=== PATIENT | female | born 1950 | race Caucasian/White ===

== ENCOUNTER 2016-11-22 20:04 | Emergency (ER) | payer MEDICARE ==
[~2016-11-22 20:04] MED LIST: Sodium Chloride 0.9% 1,000 ML BAG ONE
[2016-11-22 20:27] LABS: #Basophils 0.1 thou/uL (0.0-0.2); #Eosinphils 0.3 thou/uL (0.0-0.7); #Lymphocytes 2.6 thou/uL (1.20-3.40); #Monocytes 0.6 thou/uL (0.11-0.59); #Neutrophils 3.9 thou/uL (1.40-6.50); %Eosinophils 4.3 % (0.0-10.0); %Lymphocytes 34.9 % (21.0-51.0); %Monocytes 7.8 % (0.0-10.0); %Neutrophils 52.1 % (42.0-75.0); Hemoglobin 13.5 g/dL (12.0-16.0); Mean Corpuscular HGB CONC 33.4 g/dL (32.0-36.0); Mean Corpuscular Hemoglobin 31.1 pg (27.0-31.0); Mean Corpuscular Volume 93.2 fl (81.0-99.0); Mean Platelet Volume 6.5 fL (7.4-10.4); Platelet Count 262 thou/uL (130-400); Red Blood Cell (RBC) Count 4.35 mill/uL (4.20-5.40); White Blood Cell (WBC) Count 7.5 thou/uL (4.8-10.8)
[2016-11-22 20:31] LABS: PTT 23.7 SEC (22.9-36.1); Prothrombin Time 13.6 SEC (12.0-14.7)
[2016-11-22 20:32] LABS: D-Dimer Test Less than 0.27 *mcg/mL (0.27-0.43)
--- NOTE | 2016-11-22 20:40 | CT ---
CT BRAIN NONCONTRAST: 11/22/16 HISTORY: 66-year-old female with headache and acute right sided weakness. FINDINGS: There is no midline shift or any other mass effect. There is no evidence of acute intracranial hemo rrhage, large cortical infarct, obstructive hydrocephalus, or extraaxial fluid collection. The calv arium is intact. There is a small, several millimeter size focal calcification at the posterior supe rolateral aspect of the left globe. There has been no interval change overall since 07/10/15. IMPRESSION: 1. No acute intracranial findings. 2. Nonspecific calcification of the left globe. jn [] POS: [facility]
[2016-11-22 20:45] LABS: ALT (SGPT) 30 U/L (0-55); AST (SGOT) 23 U/L (5-34); Albumin 4.4 g/dL (3.4-4.8); Alkaline Phosphatase 58 U/L (40-150); Anion Gap 18 mmol/L (10-20); BUN (Urea Nitrogen) 21 mg/dL (9.8-20.1); Bilirubin, Total 0.3 mg/dL (0.2-1.2); Calc. Creatinine Clearance 0 mL/min (70-130); Calcium 10.6 mg/dL (7.8-10.44); Carbon Dioxide 26 mmol/L (23-31); Chloride 98 mmol/L (98-107); Estimated GFR-MDRD 48; Globulin 2.7 g/dL (2.4-3.5); Glucose 346 mg/dL (80-115); Potassium 4.1 mmol/L (3.5-5.1); Protein, Total 7.1 g/dL (5.8-8.1); Sodium 138 mmol/L (136-145)
[2016-11-22 20:47] LABS: CKMB 1.4 ng/mL (0-6.6); Troponin I Less than 0.010 ng/mL (< 0.028)
[2016-11-22] MEDS ORDERED: Acetaminophen 325 MG TAB ONE (21:36)
[2016-11-22 21:40] LABS: Bilirubin Negative (Negative); Blood, Urine Negative (Negative); Clarity Clear (Clear); Glucose, Urine (Dipstick) 500 mg/dL (Negative); Leukocyte Negative (Negative); Nitrite Negative (Negative); Protein, Urine (Dipstick) Negative (Neg-Trace); Specific Gravity, Urine 1.015 (1.005-1.030); Urobilinogen 0.2 mg/dL (0.2-1.0)
== END 2016-11-22 21:37 | disposition short-term general hospital (02) ==
LOC: MADERS 20:04
DX: R20.2 Paresthesia of skin (principal); R42 Dizziness and giddiness; E11.65 Type 2 diabetes mellitus with hyperglycemia; I10 Essential (primary) hypertension; K21.9 Gastro-esophageal reflux disease without esophagitis; E78.5 Hyperlipidemia, unspecified; F32.9 Major depressive disorder, single episode, unspecified; Z79.82 Long term (current) use of aspirin; Z79.84 Long term (current) use of oral hypoglycemic drugs; Z79.899 Other long term (current) drug therapy
CPT/HCPCS: 36416; 51701; 70450; 80053; 81003; 82553; 84484; 85025; 85379; 85610; 85652; 85730; 93005; 96360; A4353; J7050

== ENCOUNTER 2017-07-07 12:11 | Emergency (ER) | payer MEDICARE ==
[2017-07-07] MEDS ORDERED: Dexamethasone 4 MG TAB ONE (13:35)
== END 2017-07-07 13:45 | disposition home or self-care (01) ==
LOC: MADERS 12:11
DX: S93.402A Sprain of unspecified ligament of left ankle, initial encounter (principal); E11.9 Type 2 diabetes mellitus without complications; E78.5 Hyperlipidemia, unspecified; I10 Essential (primary) hypertension; K21.9 Gastro-esophageal reflux disease without esophagitis; F32.9 Major depressive disorder, single episode, unspecified; Z79.84 Long term (current) use of oral hypoglycemic drugs; Z86.73 Personal history of transient ischemic attack (TIA), and cerebral infarction without residual deficits; Z79.899 Other long term (current) drug therapy; X50.9XXA Other and unspecified overexertion or strenuous movements or postures, initial encounter
CPT/HCPCS: 99283; J8540

== ENCOUNTER 2017-07-25 17:53 | Emergency (ER) | payer MEDICARE ==
[2017-07-25] MEDS ORDERED: HYDROcodone/Acetaminophen 5/325 mg Tablet ONE (19:36)
[2017-07-25] MEDS ORDERED: Oseltamivir 75 MG CAP ONE (19:37)
--- NOTE | 2017-07-25 21:13 | RAD ---
TWO VIEWS CHEST 07/25/17 PROVIDED CLINICAL HISTORY: Cough. FINDINGS: Comparison is made with the study dated 07/11/15. The cardiac and mediastinal silhouette is within normal limits. Atherosclerosis involves the aortic a rch. No focal consolidation, pleural fluid, or pneumothorax apparent. Degenerative changes are seen i nvolving the thoracic spine. IMPRESSION: No evidence for an acute cardiopulmonary process. POS: [facility]
== END 2017-07-25 19:30 | disposition home or self-care (01) ==
LOC: MADERS 17:53
DX: J11.1 Influenza due to unidentified influenza virus with other respiratory manifestations (principal); E11.9 Type 2 diabetes mellitus without complications; E78.5 Hyperlipidemia, unspecified; I10 Essential (primary) hypertension; K21.9 Gastro-esophageal reflux disease without esophagitis; F32.9 Major depressive disorder, single episode, unspecified; Z86.73 Personal history of transient ischemic attack (TIA), and cerebral infarction without residual deficits; Z79.84 Long term (current) use of oral hypoglycemic drugs; Z79.899 Other long term (current) drug therapy; Z79.82 Long term (current) use of aspirin
CPT/HCPCS: 71020

== ENCOUNTER 2021-08-29 19:39 | Emergency (ER) | payer MEDICARE ==
[2021-08-29 20:25] LABS: #Basophils 0.1 thou/uL (0.0-0.2); #Eosinphils 0.2 thou/uL (0.0-0.7); #Monocytes 0.8 thou/uL (0.11-0.59); %Basophils 0.9 % (0.0-1.0); %Eosinophils 2.7 % (0.0-10.0); %Lymphocytes 33.3 % (21.0-51.0); %Monocytes 8.6 % (0.0-10.0); %Neutrophils 54.6 % (42.0-75.0); Mean Corpuscular HGB CONC 32.1 g/dL (32.0-36.0); Mean Corpuscular Hemoglobin 29.8 pg (27.0-31.0); Mean Corpuscular Volume 92.7 fL (78.0-98.0); Mean Platelet Volume 6.1 fL (7.4-10.4); Platelet Count 318 thou/uL (130-400); RBC Distribution Width 11.8 % (11.5-14.5); Red Blood Cell (RBC) Count 4.02 mill/uL (4.20-5.40); White Blood Cell (WBC) Count 9.1 thou/uL (4.8-10.8)
[2021-08-29 20:45] LABS: ALT (SGPT) 25 U/L (8-55); AST (SGOT) 24 U/L (5-34); Albumin 4.1 g/dL (3.4-4.8); Alkaline Phosphatase 66 U/L (40-110); Anion Gap 18 mmol/L (10-20); BUN (Urea Nitrogen) 16 mg/dL (9.8-20.1); Bilirubin, Total 0.3 mg/dL (0.2-1.2); CK (CPK) 316 U/L (29-168); Calc. Creatinine Clearance 0 mL/min (70-130); Calcium 9.4 mg/dL (7.8-10.44); Carbon Dioxide 22 mmol/L (23-31); Chloride 98 mmol/L (98-107); Globulin 2.4 g/dL (2.4-3.5); Potassium 3.9 mmol/L (3.5-5.1); Protein, Total 6.5 g/dL (5.8-8.1); Sodium 134 mmol/L (136-145)
[2021-08-29 20:54] LABS: Bilirubin Negative (Negative); Blood, Urine Negative (Negative); Clarity Clear (Clear); Glucose, Urine (Dipstick) Negative (Negative); Ketone, Urine Negative (Negative); Leukocyte Small (Negative); Nitrite Positive (Negative); Protein, Urine (Dipstick) Negative (Neg-Trace); Urobilinogen 0.2 mg/dL (Less than 2); pH, Urine 5.5 (5.0-9.0)
[2021-08-29 20:55] LABS: Specific Gravity, Urine 1.009 (1.002-1.036)
[2021-08-29 20:56] LABS: Glucose 52 mg/dL (83-110)
[2021-08-29 21:09] LABS: Bacteria/HPF 3+ HPF (None Seen); RBC/HPF None Seen HPF (0-3); Squamous Epithelial 0-3 HPF (0-3); Transitional Epithelial 0-3 HPF (None Seen)
[2021-08-29] MEDS ORDERED: Cephalexin 500 MG CAP ONE (22:15)
== END 2021-08-29 22:20 | disposition home or self-care (01) ==
LOC: MADERS 19:39
DX: R41.82 Altered mental status, unspecified (principal); E86.0 Dehydration; N39.0 Urinary tract infection, site not specified; E11.649 Type 2 diabetes mellitus with hypoglycemia without coma; E78.5 Hyperlipidemia, unspecified; E78.00 Pure hypercholesterolemia, unspecified; I10 Essential (primary) hypertension; K21.9 Gastro-esophageal reflux disease without esophagitis; Z86.73 Personal history of transient ischemic attack (TIA), and cerebral infarction without residual deficits
CPT/HCPCS: 36416; 70450; 71045; 80053; 81003; 81015; 82550; 84484; 85025

== ENCOUNTER 2025-06-04 13:13 | Emergency (ER) | payer OTHER | END 2025-06-04 14:25 | disposition home or self-care (01) | LOC: MADERS 13:13 | DX: S70.01XA Contusion of right hip, initial encounter (principal); S40.021A Contusion of right upper arm, initial encounter; E11.9 Type 2 diabetes mellitus without complications; K21.9 Gastro-esophageal reflux disease without esophagitis; I10 Essential (primary) hypertension; E78.5 Hyperlipidemia, unspecified; G45.9 Transient cerebral ischemic attack, unspecified; K22.70 Barrett's esophagus without dysplasia; W18.2XXA Fall in (into) shower or empty bathtub, initial encounter; Z79.84 Long term (current) use of oral hypoglycemic drugs; Z79.899 Other long term (current) drug therapy | CPT/HCPCS: 72170; 99283 ==

== ENCOUNTER 2025-06-04 14:39 | Outpatient (CLI) | payer OTHER ==
[2025-06-04 15:32] LABS: #Basophils 0.1 thou/uL (0.0-0.2); #Eosinophils 0.1 thou/uL (0.0-0.7); #Lymphocytes 1.9 thou/uL (1.20-3.40); #Monocytes 0.5 thou/uL (0.11-0.59); #Neutrophils 3.6 thou/uL (1.40-6.50); %Basophils 1.2 % (0.0-1.0); %Eosinophils 1.1 % (0.0-10.0); %Lymphocytes 31.5 % (21.0-51.0); %Monocytes 7.3 % (0.0-10.0); %Neutrophils 58.9 % (42.0-75.0); Hematocrit 43.8 % (36.0-47.0); Hemoglobin 14.0 g/dL (12.0-16.0); Mean Corpuscular Hemoglobin 30.9 pg (27.0-31.0); Mean Corpuscular Volume 96.7 fl (78.0-98.0); Platelet Count 259 10x3/uL (130-400); Red Blood Cell (RBC) Count 4.53 mill/uL (4.20-5.40); White Blood Cell (WBC) Count 6.1 10x3/uL (4.8-10.8)
[2025-06-04 23:48] LABS: Iron 65 ug/dL (50-170); Iron Binding Capacity, Total 238 mcg/dL (265-497)
== END 2025-06-04 14:40 | disposition home or self-care (01) ==
LOC: MADLAB 14:39
PROVIDERS: ATTEND Internal Medicine Hematology & Oncology
DX: D50.8 Other iron deficiency anemias (principal); S70.01XA Contusion of right hip, initial encounter; S40.021A Contusion of right upper arm, initial encounter; E11.9 Type 2 diabetes mellitus without complications; K21.9 Gastro-esophageal reflux disease without esophagitis; I10 Essential (primary) hypertension; E78.5 Hyperlipidemia, unspecified; G45.9 Transient cerebral ischemic attack, unspecified; K22.70 Barrett's esophagus without dysplasia; W18.2XXA Fall in (into) shower or empty bathtub, initial encounter; Z79.84 Long term (current) use of oral hypoglycemic drugs; Z79.899 Other long term (current) drug therapy
CPT/HCPCS: 36415; 72170; 82728; 83540; 83550; 85025; 99283